=== PATIENT | female | born 1975 | race Two or more races ===

== ENCOUNTER → 2016-12-05 | Outpatient (CLI) | payer OTHER ==
[~2016-12-05] MED LIST: FLEXERIL10 M1 PO; IBUPROFEN600 MG PO
--- NOTE | ~2016-12-05 | MY11 ---
[facility] A Service of [facility] RADIOLOGY TEXT RESULTS PATIENT: IZABELLA MCCLAIN LOCATION: [facility] #: [id number] : 73 UNIT #: [id number] AGE: [address]: ALYSHA FULTON APRN SEX: F ORDER DR: [id number] [facility] [address] [place], [place] [address] [id number] O MR#: [id number] Acc #: [id number] NAME: IZABELLA MCCLAIN : 1975 SEX: F STUDY DATE/TIME: 12/05/2016 10:35 UNIT: [facility] ROOM: STUDY DESCRIPTION: MY Mammogram Screening Dig Ramin Attending Physician: Alysha Fulton Referring Physician: Alysha Fulton Ordering Physician: Belen Fulton M.D. Primary Care Physician: Alhaji Sim M.D. MEDICAL IMAGING REPORT This report is preliminary unless electronic signature is present EXAM Screening mammogram 12/05 INDICATIONS 41-year-old with no personal or family history of breast cancer. No current complaints. She has a history of breast reduction surgery. FINDINGS Routine digital screening views of both breasts were obtained. Study reviewed with an FDA-approved CAD device. No comparison. Breast parenchyma shows scattered fibroglandular densities. No masses or suspicious microcalcifications are seen. IMPRESSION Negative baseline screening mammogram. Followup in 1 year recommended. Patients over the age of 40 are entered into a reminder system with target due date for the next mammogram. A result letter will also be sent to the patient. BIRADS: 1 - negative Dictated by... Gregor Sanchez Jr., M.D. THIS IS AN ELECTRONICALLY VERIFIED REPORT Gregor Sanchez Jr., M.D. at 12/05/2016 4:27 PM KAREN/floyd TD: 12/05/2016 13:25 [facility] A Service of [facility] RADIOLOGY TEXT RESULTS PATIENT: IZABELLA MCCLAIN [facility] #[facility] [id number] : 73 UNIT #: [id number] AGE: [address]: ALYSHA FULTON APRN SEX: F ORDER DR: JOB #: [id number] MEDICAL IMAGING REPORT Page 1 of 1 COPY
== END | disposition home or self-care (01) ==
LOC: CWCC 09:49
DX: Z12.31 Encounter for screening mammogram for malignant neoplasm of breast (principal)
CPT/HCPCS: G0202